=== PATIENT | female | born 1945 | race Caucasian/White ===

== ENCOUNTER → 2018-04-08 | Outpatient (CLI) | payer OTHER | LOC: FIMAGING 19:22 | PROVIDERS: ATTEND Orthopaedic Surgery Hand Surgery | DX: M24.831 Other specific joint derangements of right wrist, not elsewhere classified (principal); S63.51 Sprain of carpal (joint); M24.131 Other articular cartilage disorders, right wrist; M65.841 Other synovitis and tenosynovitis, right hand ==

== ENCOUNTER → 2018-04-21 | Outpatient (CLI) | payer OTHER ==
[~2018-04-21] MED LIST: BUPIVACAINE 0.25% 30 ML SDV ONE; DEPO METHYLPREDNISOLONE 40 MG/ML SDV ONE; LIDOCAINE 1% 300 MG/30 ML SDV ONE
== END ==
LOC: FIMAGING 12:16
PROVIDERS: ATTEND Orthopaedic Surgery Hand Surgery
PROC: 3E0U3BZ Introduction of Anesthetic Agent into Joints, Percutaneous Approach (ICD-10-PCS; principal; 2018-04-21)
PROC: 3E0U33Z Introduction of Anti-inflammatory into Joints, Percutaneous Approach (ICD-10-PCS; 2018-04-21)
DX: M79.644 Pain in right finger(s) (principal)
CPT/HCPCS: 20604; 76942; J1030